=== PATIENT | male | born 1950 | race Caucasian/White ===

== ENCOUNTER 2025-07-06 11:50 | Day surgery (SDC) | payer MEDICARE ==
[2025-07-01 15:35] LABS: MEAN PLATELET VOLUME 7.3 FL (7.4-10.4); RED CELL DISTRIBUTION WIDTH 16.0 % (11.5-14.5)
--- NOTE | 2025-07-01 15:39 | ELECTROCARDIOGRAPH REPORT ---
[facility] Test Date: 2025-07-01 Test Time: 15:37:08 Pat Name: ARINA HUSTON Department: [facility]-PRE-OP Patient ID: [facility]-[id number] Room: Gender: M [employer] Consultant: NEYMAR : 1950 Requested By: PRABHU DOSS Order Number: [id number] Reading MD: Dr. BISHNU Ramirez Measurements Intervals [place] Rate: 104 P: -9 TN: 125 QRS: -11 QRSD: 78 T: 28 QT: 340 QTc: 448 Interpretive Statements Sinus tachycardia Electronically Signed On 07-02-2025 19:12:[address] BISHNU Ramirez Please click the below link to view image of tracing.
[2025-07-01 15:56] LABS: CREATININE 1.04 MG/DL (0.60-1.10); TOTAL CARBON DIOXIDE 26.0 MMOL/L (24-32); eGFR 70 ML/MIN
[2025-07-06] VITALS (8 sets, daily range): BP systolic 131–143; BP diastolic 81–100; PULSE 86–104; RESP 14–16; TEMP 97.3; O2SAT 96–99
[~2025-07-06] VITALS: Ht 177.8 cm; Wt 81.6 kg
[~2025-07-06 11:50] MED LIST: AMLO10TA PO; ATI1T PO; CETI10TA19 PO; COLON CLEANSE PO; DOCU100C38 PO; FERR-116 PO; MELA10TA2 PO; MULT-1085 PO; ONDA-245 PO; OXYC1TAB17 PO; POLY17PO59 PO; [UNRECOGNIZED DRUG - OTHER]; ceFAZolin 2gm/dext,iso 50mL 50 ML IV ONE
[2025-07-06] MEDS ORDERED: iohexol 300 MG/1 ML 50ml polymer ONE (14:38)
[2025-07-06] MEDS: ringers solution, lacted 1,000 ML IV SCH (15:39)
[2025-07-06] MEDS ORDERED: HYDROmorphone/PF 0.2 MG/ML SYRINGE IV PRN ×2 (15:55)
[2025-07-06] MEDS ORDERED: hydrALAZINE 20mg/ml inj. IV PRN (15:55)
[2025-07-06] MEDS ORDERED: ondansetron/PF 4mg/2ml inj IV PRN (15:55)
[2025-07-06] MEDS ORDERED: fentaNYL/PF 50MCG/1 ML 2ML syringe IV PRN (15:55)
[2025-07-06] MEDS ORDERED: labetalol 20mg/4ml (5mg/ml) syringe IV PRN (15:55)
[2025-07-06] MEDS ORDERED: ringers solution, lacted 1,000 ML IV SCH (15:55)
[2025-07-06] MEDS ORDERED: midazolam 1 mg/ML 2ml injection ONE (17:02)
[2025-07-06] MEDS ORDERED: fentaNYL/PF 50MCG/1 ML 2ML syringe ONE (17:02)
[2025-07-06] MEDS ORDERED: 0.9 % SODIUM CHLORIDE 10 ML VIAL ONE (17:39)
[2025-07-06] MEDS ORDERED: propofol inj 20 ML IV ONE ×2 (17:39)
[2025-07-06] MEDS ORDERED: dexamethasone sod phosphate 4mg/ml inj. ONE (17:39)
[2025-07-06] MEDS ORDERED: LIDOcaine 2% (20mg/ml) 5ml vial ONE (17:39)
[2025-07-06] MEDS ORDERED: ePHEDrine 50MG/ML INJ. ONE (17:40)
[2025-07-06] MEDS ORDERED: ondansetron/PF 4mg/2ml inj ONE (18:05)
--- NOTE | 2025-07-06 18:21 | OPERATIVE REPORT ---
Operative Report Providers to CC ~ Date of Procedure: Jul 06, 2025 Pre-Operative Diagnosis: Bladder stone Post-Operative Diagnosis SAME as PRE-Op Procedure Performed Cystolithopexy Surgeon: MD Александр Medical Technician None Anesthesiologist: Trenton Alarcon Type of Anesthesia: General Findings: Bladder stone, 2 cm in greatest dimension. Complications None Prosthetics\Implants used: None Estimated Blood Loss: None Specimen Removed: None Description of Procedure: Patient was brought to the operating room, given a general anesthetic and placed in the dorsal lithotomy position. He was prepped and draped in the normal sterile fashion. A timeout was performed. A 25 [place] cystoscope was inserted v ia urethra. The stone was seen in the bladder. 2 cm in greatest dimension. 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 No tumors. The laser was then used the fracture the stones at which point they were all removed via the cystoscope. At this point I decided to leave a catheter in to let the bladder heal. 18 [place] catheter was inserted with 10 mL into the balloon. Attached to gravity drainage. PRABHU DOSS MD Jul 06, 2025 18:21
[2025-07-06] MEDS: fentaNYL/PF 50MCG/1 ML 2ML syringe IV PRN (18:39)
[2025-07-06] MEDS: acetaminophen 1,000mg/100ml IV 100 ML IV PRN (18:39)
== END 2025-07-06 19:20 | disposition home or self-care (01) ==
LOC: PAS 11:50
PROVIDERS: ATTEND Urology
DX: N21.0 Calculus in bladder (principal); I10 Essential (primary) hypertension; Z87.891 Personal history of nicotine dependence; Z79.899 Other long term (current) drug therapy; Z90.5 Acquired absence of kidney; Z98.890 Other specified postprocedural states; Z88.8 Allergy status to other drugs, medicaments and biological substances
CPT/HCPCS: 36415; 52317; 80053; 82948; 85025; 93005; A4338; A4618; A7000; J0131; J1100; J2003; J2250; J2405; J2704; J3010; J3490; J7030; J7120; Q9967; Z7506; Z7508; Z7512; Z7610